=== PATIENT | female | born 1950 | race African-American/Black ===

== ENCOUNTER 2022-10-31 15:51 | Emergency (ER) | payer BC, MEDICAID ==
[~2022-10-31] VITALS: Ht 172.7 cm; Wt 91.0 kg
[2022-10-31] MEDS ORDERED: ONDANSETRON HCL 4MG/2ML INJ IV STA (16:09)
[2022-10-31] MEDS ORDERED: SODIUM CHLORIDE 0.9% 1,000 ML IV ONE (16:15)
[2022-10-31] MEDS ORDERED: MECLIZINE 25MG TABLET PO ONE (16:15)
[2022-10-31] MEDS ORDERED: MECLIZINE 12.5MG TABLET PO NR (16:30)
[2022-10-31 17:08] LABS: BASOPHILS % 0.3 % (0.0-2.0); EOSINOPHILS % 0.5 % (0.0-5.0); HEMATOCRIT. 45.6 % (36.0-48.0); LYMPHOCYTES % 28.8 % (20.0-50.0); MEAN CORPUSCULAR HEMOGLOBIN 27.7 pg (28.0-32.0); MEAN PLATELET VOLUME 7.7 fl (7.4-10.4); NEUTROPHILS % 65.4 % (40.0-76.0); PLATELET 250 x1000/uL (130-400); RED BLOOD CELL COUNT 5.42 mill/uL (4.2-5.4); RED CELL DISTRIBUTION WIDTH 15.1 % (11.6-14.6)
[2022-10-31 17:16] LABS: CHLORIDE 104 mEq/L (98-107)
[2022-10-31] MEDS ORDERED: MECL-159 MT (23:09)
[2022-10-31 23:45] VITALS: BP 138/79
[2022-10-31] MEDS ORDERED: ONDA4TAB11 PO (23:56)
== END 2022-10-31 23:54 | disposition home or self-care (01) ==
LOC: ER 15:51
DX: R42 Dizziness and giddiness (principal); I10 Essential (primary) hypertension
CPT/HCPCS: 36415; 70450; 71045; 80053; 83880; 84484; 85025; 93005; 99285; J7030; J8597